=== PATIENT | male | born 1960 | race African-American/Black ===

== ENCOUNTER 2019-10-23 11:45 | Outpatient (CLI) | payer BC ==
--- NOTE | 2019-10-23 12:32 | RAD ---
Radiograph right heel 2 views: 10/23/2019 HISTORY: 59-year-old male with right heel pain COMPARISON: None FINDINGS: Flatfoot. At least mild degenerative changes at mid foot, incompletely imaged. Small enthesophyte at plantar fascial attachment of calcaneus. Small to moderate size enthesophyte at Achilles tendon insertion site. Trabecular markings appear to be preserved. No destructive osseous lesion of the calc aneus identified. Mild degenerative changes at posterior subtalar joint with mild osteophytosis. Boehler's angle maintained. Mild soft tissue edema. IMPRESSION: 1. No fracture. 2. Pes planus. 3. Soft tissue edema.
== END 2019-10-23 11:46 | disposition home or self-care (01) ==
LOC: NAV RAD 11:45
PROVIDERS: ATTEND Internal Medicine
DX: M79.671 Pain in right foot (principal); I11.9 Hypertensive heart disease without heart failure; M21.41 Flat foot [pes planus] (acquired), right foot; M79.89 Other specified soft tissue disorders

== ENCOUNTER 2021-09-12 23:01 | Emergency (ER) | payer OTHER | END 2021-09-12 23:55 | disposition home or self-care (01) | LOC: NAV ERS 23:01 | DX: K91.89 Other postprocedural complications and disorders of digestive system (principal); Z48.03 Encounter for change or removal of drains; I10 Essential (primary) hypertension; Z79.899 Other long term (current) drug therapy; Z90.49 Acquired absence of other specified parts of digestive tract | CPT/HCPCS: 99283 ==